=== PATIENT | female | born 1960 | race Caucasian/White ===

== ENCOUNTER 2021-12-08 10:12 | Emergency (ER) | payer SELFPAY ==
[~2021-12-08] VITALS: Ht 160 cm; Wt 70.0 kg
[2021-12-08 10:16] VITALS: BP 132/84
== END 2021-12-08 13:57 | disposition left against medical advice (07) ==
LOC: ER 10:12
DX: Z53.21 Procedure and treatment not carried out due to patient leaving prior to being seen by health care provider (principal)